=== PATIENT | male | born 1965 | race Caucasian/White ===

== ENCOUNTER → 2022-04-05 | Outpatient (CLI) | payer BC ==
[2022-03-31 14:37] LABS: BASOPHILS # (AUTO) 0.1 (0.0-0.1); BASOPHILS % 0.8 % (0.0-1.0); EOSINOPHILS # (AUTO) 0.5 (0.0-0.4); EOSINOPHILS % 5.4 % (0.0-6.0); HEMATOCRIT 46.6 % (38.2-49.6); HEMOGLOBIN 15.3 g/dL (14.0-18.0); LYMPHOCYTES # (AUTO) 2.7 (1.0-3.2); MEAN CORPUSCULAR HEMOGLOBIN 30.4 pg (28-32); MEAN CORPUSCULAR HGB CONC 32.8 g/dL (31-35); MEAN CORPUSCULAR VOLUME 92.6 fL (81-99); MONOCYTES # (AUTO) 0.9 (0.2-0.8); NEUTROPHILS # (AUTO) 5.7 (2.1-6.9); NEUTROPHILS % 57.5 % (38.7-80.0); PLATELET COUNT 179 x10e3/uL (140-360); RED BLOOD COUNT 5.03 x10e6/uL (4.3-5.7); RED CELL DISTRIBUTION WIDTH 14.3 % (11.7-14.4)
[~2022-04-05] MED LIST: ASPIRIN81 MG PO; ATORVASTATIN CA20 MG PO; CLOPIDOGREL75 MG PO; LISINOPRIL10 MG PO; METOPROLOL PO
== END ==
LOC: RAD 05:00 → OR 05:23 → EDSTATUS 07:00
PROVIDERS: ATTEND Plastic Surgery
DX: Z01.810 Encounter for preprocedural cardiovascular examination (principal); Z01.812 Encounter for preprocedural laboratory examination; L72.8 Other follicular cysts of the skin and subcutaneous tissue
CPT/HCPCS: 36415; 85025; 93005